=== PATIENT | male | born 1955 | race Caucasian/White ===

== ENCOUNTER 2020-11-05 04:46 | Day surgery (SDC) | payer BC ==
[2020-11-04 15:24] VITALS: BMI 26.4
[2020-11-05 13:02] VITALS: TEMP 98
[2020-11-05 13:55] VITALS: BP 132/71; PULSE 56
== END 2020-11-05 13:55 | disposition home or self-care (01) ==
LOC: JASU-ENDO 04:46
PROVIDERS: ATTEND Internal Medicine Gastroenterology
PROC: 0DB68ZX Excision of Stomach, Via Natural or Artificial Opening Endoscopic, Diagnostic (ICD-10-PCS; 2020-11-05)
PROC: 0DBK8ZX Excision of Ascending Colon, Via Natural or Artificial Opening Endoscopic, Diagnostic (ICD-10-PCS; principal; 2020-11-05 12:15)
DX: Z12.11 Encounter for screening for malignant neoplasm of colon (principal); Z86.010 Personal history of colon polyps; D12.2 Benign neoplasm of ascending colon; K64.8 Other hemorrhoids; K29.60 Other gastritis without bleeding; K21.9 Gastro-esophageal reflux disease without esophagitis
CPT/HCPCS: 88305-TC; 88342-TC